=== PATIENT | male | born 1950 | race Caucasian/White ===

== ENCOUNTER 2022-08-12 09:51 | Observation (INO) | payer MEDICARE ==
[~2022-08-12] VITALS: Ht 188 cm; Wt 111.1 kg
[2022-08-12 10:19] LABS: HEMATOCRIT 47.6 % (42-54); MEAN CORPUSCULAR HEMOGLOBIN 30.2 pg (27.0-33.0); MEAN CORPUSCULAR HGB CONC 33.4 g/dL (32.0-36.0); MEAN CORPUSCULAR VOLUME 90.3 fL (79-99); RED BLOOD CELL COUNT(AUTO) 5.27 MIL/uL (4.50-6.20); RED CELL DISTRIBUTION WIDTH 13.4 % (11.0-15.5); WHITE BLOOD COUNT (AUTO) 9.1 K/uL (4.8-10.8)
[2022-08-12 10:26] LABS: CREATININE 1.2 mg/dL (0.5-1.5); POTASSIUM 3.6 mmol/L (3.5-5.1)
[2022-08-12 10:31] LABS: ALBUMIN 3.6 g/dL (3.5-5.0); TOTAL PROTEIN, SERUM 7.7 g/dL (6.0-8.3)
[2022-08-12] MEDS ORDERED: METOPROLOL TARTRATE 1 MG/ML 5ML VIAL IV ONE ×2 (10:34→11:00)
[2022-08-12] MEDS ORDERED: DILTIAZEM 50MG VIAL IV ONE ×2 (10:45→11:00)
[2022-08-12 13:50] LABS: APPEARANCE,URINE CLEAR (CLEAR); BILIRUBIN,URINE NEGATIVE (NEGATIVE); COLOR,URINE LIGHT-YELLOW (YELLOW); GLUCOSE, URINE (UA) NEGATIVE (NEGATIVE); KETONES,URINE NEGATIVE (NEGATIVE); LEUKOCYTE ESTERASE ,URINE NEGATIVE Leu/uL (NEGATIVE); NITRATE,URINE NEGATIVE (NEGATIVE); OCCULT BLOOD,URINE NEGATIVE (NEGATIVE); PROTEIN,URINE NEGATIVE (NEGATIVE); UROBILINOGEN,URINE 0.2 mg/dL (0.2-1.0)
[2022-08-12] MEDS: MAGNESIUM 2GM PREMIX 50ML 50 ML IV SCH (14:23)
[2022-08-12 16:00] VITALS: BP 147/77
[2022-08-12] MEDS ORDERED: L.AC1CAP6 PO (18:48)
[2022-08-12] MEDS ORDERED: MULT-1311 PO (18:48)
[2022-08-12] MEDS ORDERED: ALLO300T2 PO (18:48)
[2022-08-12] MEDS ORDERED: APIX5TAB PO (18:48)
[2022-08-12] MEDS ORDERED: CHLO25TA3 PO (18:48)
[2022-08-12] MEDS ORDERED: SOTA120T PO (18:48)
[2022-08-12] MEDS ORDERED: CHOL200012 PO (18:48)
[2022-08-12 18:58] VITALS: BP 133/72
[2022-08-12] MEDS: APIXABAN 5 MG TABLET PO SCH (20:08)
[2022-08-12] MEDS: METOPROLOL TARTRATE 25 MG TAB PO SCH (20:09)
[2022-08-12] MEDS ORDERED: METOPROLOL TARTRATE 25 MG TAB PO SCH (21:00)
[2022-08-12 23:40] VITALS: BP 129/69
[2022-08-13 03:46] VITALS: BP 150/79
[2022-08-13 03:57] LABS: BASOPHILS % (AUTO) 0.9 % (0.0-5.0); EOSINOPHILS % (AUTO) 1.5 % (0.0-8.0); LYMPHOCYTES % (AUTO) 30.4 % (21.0-51.0); MEAN CORPUSCULAR HEMOGLOBIN 30.6 pg (27.0-33.0); MEAN CORPUSCULAR HGB CONC 33.4 g/dL (32.0-36.0); MEAN CORPUSCULAR VOLUME 91.5 fL (79-99); MONOCYTES % (AUTO) 10.1 % (3.0-13.0); NEUTROPHILS % (AUTO) 56.6 % (40.0-77.0); PLATELET COUNT (AUTO) 229 K/uL (130-400); RED BLOOD CELL COUNT(AUTO) 4.48 MIL/uL (4.50-6.20); RED CELL DISTRIBUTION WIDTH 13.2 % (11.0-15.5); WHITE BLOOD COUNT (AUTO) 7.8 K/uL (4.8-10.8)
[2022-08-13 04:08] LABS: CREATININE 1.1 mg/dL (0.5-1.5); MAGNESIUM 1.8 mg/dL (1.80-2.40); POTASSIUM 3.4 mmol/L (3.5-5.1); TOTAL PROTEIN, SERUM 6.2 g/dL (6.0-8.3)
[2022-08-13] MEDS: MAGNESIUM 2GM PREMIX 50ML 50 ML IV SCH (04:54)
[2022-08-13 07:00] VITALS: BP 139/75
[2022-08-13] MEDS ORDERED: POTASSIUM CHLORIDE 10% ELIXIR 20 MEQ/15 ML UDCUP PO PRN (07:30)
[2022-08-13] MEDS ORDERED: POTASSIUM CHLORIDE 20MEQ/100ML 100 ML IV PRN (07:30)
[2022-08-13] MEDS: METOPROLOL TARTRATE 25 MG TAB PO SCH (08:27)
[2022-08-13] MEDS: APIXABAN 5 MG TABLET PO SCH (08:27)
[2022-08-13 11:00] VITALS: BP 136/77
== END 2022-08-13 14:16 | disposition home or self-care (01) ==
LOC: EDH 09:51 → INTOOBSV 14:12 → EDHIP 14:12 → OBSVTOIN 14:12 → 2DH 15:44
PROVIDERS: ADMIT Hospitalist; ATTEND Hospitalist
DX: I48.20 Chronic atrial fibrillation, unspecified (principal); I10 Essential (primary) hypertension; I45.10 Unspecified right bundle-branch block; R74.8 Abnormal levels of other serum enzymes; G47.30 Sleep apnea, unspecified; I95.9 Hypotension, unspecified; Z79.01 Long term (current) use of anticoagulants; Z79.899 Other long term (current) drug therapy; Z98.890 Other specified postprocedural states
CPT/HCPCS: 96365; 96366 ×2; 96375 ×2; 99285; 83735 ×2; 84484; 80053 ×2; 83880; 85027; 81003; 36415 ×2; 71045; 93005; 85025; 93306; J3475 ×2; J3490 ×2; G0378 ×3; 96367